=== PATIENT | male | born 1975 | race African-American/Black ===

== ENCOUNTER 2024-11-29 17:58 | Emergency (ER) | payer SELFPAY ==
[2024-11-29 18:31] LABS: #Basophils 0.05 10x3/uL (0.0-0.2); #Eosinophils 0.74 10x3/uL (0.0-0.7); #Monocytes 0.82 10x3/uL (0.11-0.59); #Neutrophils 2.23 10x3/uL (1.40-6.50); %Basophils 0.6 % (0.0-1.0); %Eosinophils 8.7 % (0.0-10.0); %Lymphocytes 54.7 % (21.0-51.0); %Monocytes 9.6 % (0.0-10.0); %Neutrophils 26.2 % (42.0-75.0); Hematocrit 42.6 % (42.0-52.0); Hemoglobin 14.5 g/dL (14.0-18.0); Mean Corpuscular Hemoglobin 29.5 pg (27.0-31.0); Mean Corpuscular Volume 86.8 fL (78.0-98.0); Platelet Count 246 10x3/uL (130-400); Red Blood Cell (RBC) Count 4.91 mill/uL (4.70-6.10); White Blood Cell (WBC) Count 8.52 10x3/uL (4.8-10.8)
[2024-11-29 18:56] LABS: ALT (SGPT) 55 U/L (Less than 45); AST (SGOT) 55 U/L (11-34); Albumin 4.2 g/dL (3.1-4.5); Alkaline Phosphatase 40 U/L (40-110); Anion Gap 14 mmol/L (10-20); BUN (Urea Nitrogen) 10 mg/dL (8.9-20.6); Bilirubin, Total 0.3 mg/dL (0.3-1.2); Calc. Creatinine Clearance 0 mL/min (70-130); Calcium 9.2 mg/dL (7.8-10.44); Carbon Dioxide 28 mmol/L (22-29); Chloride 102 mmol/L (98-107); Globulin 3.0 g/dL (2.4-3.5); Glucose 96 mg/dL (70-105); Potassium 3.4 mmol/L (3.5-5.1); Sodium 141 mmol/L (136-145)
[2024-11-29 18:59] LABS: Troponin I Less than 0.010 ng/mL (< 0.028)
[2024-11-29] MEDS ORDERED: Metoclopramide HCl 10 MG (2 mL) VIAL ONE (20:43)
[2024-11-29] MEDS ORDERED: Ketorolac Tromethamine 30 MG (1 mL) VIAL ONE (20:43)
[2024-11-29] MEDS ORDERED: diphenhydrAMINE 50 MG/ML VIAL ONE (20:43)
[2024-11-29 21:45] LABS: Troponin I Less than 0.010 ng/mL (< 0.028)
== END 2024-11-29 23:09 | disposition home or self-care (01) ==
LOC: ERS 17:58
DX: R51.9 Headache, unspecified (principal); R07.9 Chest pain, unspecified; R29.700 NIHSS score 0
CPT/HCPCS: 36415; 70450; 71045; 80053; 84484; 85025; 93005; 96365; 96375; J1200; J1885; J2765